=== PATIENT | male | born 1960 | race Caucasian/White ===

== ENCOUNTER 2017-05-21 21:14 | Emergency (ER) | payer MEDICAID ==
[~2017-05-21] VITALS: Wt 74.0 kg
[2017-05-21 23:02] LABS: ADD SCAN DIFF NO; BASOPHIL # 0.1 10^3/ul (0.0-0.1); BASOPHILS % 1.1 % (0.0-2.0); EOSINOPHILS # 0.2 10^3/ul (0.0-0.5); EOSINOPHILS % 2.8 % (0.0-7.0); HEMATOCRIT 41.7 % (42.0-52.0); HEMOGLOBIN 14.1 g/dl (14.0-18.0); LYMPHOCYTES # 2.4 10^3/ul (0.8-2.9); LYMPHOCYTES % 30.3 % (15.0-51.0); MEAN CORPUSCULAR HEMOGLOBIN 30.1 pg (29.0-33.0); MEAN CORPUSCULAR HGB CONC 33.8 g/dl (32.0-37.0); MEAN CORPUSCULAR VOLUME 89.1 fl (82.0-101.0); MEAN PLATELET VOLUME 9.6 fl (7.4-10.4); MONOCYTES % 12.9 % (0.0-11.0); NEUTROPHIL # 4.1 10^3/ul (1.6-7.5); NEUTROPHILS % 51.5 % (39.0-77.0); PLATELET COUNT 356 10^3/UL (140-415); RED BLOOD COUNT 4.68 10^6/ul (4.70-6.10); RED CELL DISTRIBUTION WIDTH 12.6 % (11.5-14.5); WHITE BLOOD COUNT 7.9 10^3/ul (4.8-10.8)
[2017-05-21 23:28] LABS: ADD UMIC YES; UR ASCORBIC ACID NEGATIVE (NEGATIVE); UR BILIRUBIN (Dip) NEGATIVE (NEGATIVE); UR BLOOD (Dip) 2+ mg/dL (NEGATIVE); UR CLARITY CLEAR (CLEAR); UR COLOR AMBER (YELLOW); UR GLUCOSE (Dip) NEGATIVE (NEGATIVE); UR KETONES (Dip) NEGATIVE (NEGATIVE); UR LEUKOCYTE ESTERASE (Dip) NEGATIVE Leu/ul (NEGATIVE); UR NITRITE (Dip) POSITIVE (NEGATIVE); UR RBC 15 /HPF (0-5); UR SPECIFIC GRAVITY (Dip) 1.006 (1.003-1.030); UR TOTAL PROTEIN (Dip) NEGATIVE (NEGATIVE); UR UROBILINOGEN (Dip) 2+ mg/dL (NEGATIVE)
[2017-05-21 23:29] LABS: ALBUMIN 4.7 g/dl (3.3-4.9); ALBUMIN/GLOBULIN RATIO 1.34; BILIRUBIN,INDIRECT 0.3 mg/dl (0-1.1); BILIRUBIN,TOTAL 0.3 mg/dl (0.2-1.3); CALCIUM 9.7 mg/dl (8.4-10.2); CREATININE 1.02 mg/dl (0.61-1.24); POTASSIUM 3.9 mmol/L (3.5-5.1); TOTAL PROTEIN 8.2 g/dl (6.1-8.1)
[2017-05-22] MEDS ORDERED: CEPH-443 PO (00:07)
--- NOTE | 2017-05-22 00:35 | ERD ---
ER Documentation Chief Complaint Date/Time DATE: 05/22/17 TIME: 00:26 Chief Complaint RETENTION X6DAYS WITH CHILLS HPI This is a 56-year-old male presents to the ER stating that on Tuesday he developed a high fever and could not urinate. Patient states that he had fevers through Tuesday however fevers have resolved. Patient states that whenever he urinates he urinates a little bit and that it hurts a lot. Patient tried taking amoxicillin however it did not work he also tried enev-icu-bvxezyn Azo which helped a little bit. Patient denies any abdominal pain he denies any flank pain he denies any rectal pain. Patient does admit to mild nausea however denies vomiting. He has had episodes of nonbloody, watery diarrhea. Patient does not have any nocturia and he does not have history of nocturia. Patient denies any penis pain and denies any dribble of his urine or weak stream. ROS 12 point review of systems was done, all negative except per HPI. Medications Home Meds Active Scripts Cephalexin* (Keflex*) 500 Mg Capsule, 500 MG PO BID for 7 Days, #14 CAP Prov:DELIA RIVERA Michelle 05/22/17 PMhx/Soc Medical and Surgical Hx: pt denies Medical Hx History of Surgery: Yes (SINUES, EYES) Anesthesia Reaction: No Hx Neurological Disorder: No Hx Respiratory Disorders: No Hx Cardiac Disorders: No Hx Miscellaneous Medical Probl: No Hx Alcohol Use: No Hx Substance Use: No Hx Tobacco Use: No Smoking Status: Never smoker Physical Exam Vitals Vital Signs Date Time Temp Pulse Resp B/P Pulse Ox O2 Delivery O2 Flow Rate FiO2 05/21/17 21:18 98.0 78 18 145/86 100 Physical Exam GENERAL: The patient is well developed and appropriate for usual state of health , in no apparent distress. HEENT: Atraumatic. CHEST: Clear to auscultation bilaterally. There are no rales, wheezes or rhonchi. HEART: Regular rate and rhythm. No murmurs, clicks, rubs or gallops. ABDOMEN: Soft, nontender and nondistended. Good bowel sounds. No rebound or guarding. No gross peritonitis. No gross organomegaly or masses. No Long sign or McBurney point tenderness. BACK: No midline or flank tenderness. NEURO: Alert and oriented. SKIN: The skin is warm and dry. Result Diagram: 05/21/17223105/21/172231 Results 24 hrs Laboratory Tests Test 05/21/17 22:32 05/21/17 22:52 White Blood Count 7.910^3/ul Red Blood Count 4.6810^6/ul Hemoglobin 14.1g/dl Hematocrit 41.7% Mean Corpuscular Volume 89.1fl Mean Corpuscular Hemoglobin 30.1pg Mean Corpuscular Hemoglobin Concent 33.8g/dl Red Cell Distribution Width 12.6% Platelet Count 54556^3/UL Mean Platelet Volume 9.6fl Neutrophils % 51.5% Lymphocytes % 30.3% Monocytes % 12.9% Eosinophils % 2.8% Basophils % 1.1% Nucleated Red Blood Cells % 0.0/100WBC Neutrophils # 4.110^3/ul Lymphocytes # 2.410^3/ul Monocytes # 1.010^3/ul Eosinophils # 0.210^3/ul Basophils # 0.110^3/ul Nucleated Red Blood Cells # 0.010^3/ul Sodium Level 143mmol/L Potassium Level 3.9mmol/L Chloride Level 100mmol/L Carbon Dioxide Level 28mmol/L Anion Gap 19 Blood Urea Nitrogen 19mg/dl Creatinine 1.02mg/dl Glucose Level 106mg/dl Calcium Level 9.7mg/dl Total Bilirubin 0.3mg/dl Direct Bilirubin 0.00mg/dl Indirect Bilirubin 0.3mg/dl Aspartate Amino Transf (AST/SGOT) 43IU/L Alanine Aminotransferase (ALT/SGPT) 97IU/L Alkaline Phosphatase 94IU/L Total Protein 8.2g/dl Albumin 4.7g/dl Globulin 3.50g/dl Albumin/Globulin Ratio 1.34 Urine Color AUTUMN Urine Clarity CLEAR Urine pH 6.0 Urine Specific [place] 1.006 Urine Ketones NEGATIVEmg/dL Urine Nitrite POSITIVEmg/dL Urine Bilirubin NEGATIVEmg/dL Urine Urobilinogen 2+mg/dL Urine Leukocyte Esterase NEGATIVELeu/ul Urine Microscopic RBC 15/HPF Urine Microscopic WBC 1/HPF Urine Hemoglobin 2+mg/dL Urine Glucose NEGATIVEmg/dL Urine Total Protein NEGATIVEmg/dl Procedures/MDM This is a 56-year-old male presents to the ER with urinary retention, dysuria. Sims catheter was inserted and over 800 cc of urine was released. Patient did have nitrites on urinalysis, will be treated for urinary tract infection as he does have dysuria. Patient will be sent home with Keflex. I discussed this case with my supervising physician Dr. Ambriz, and he agrees with my medical decision making. Patient will be sent home with Sims catheter inserted as he is having difficulty urinating. He needs to follow-up with his primary care doctor on Tuesday and requests a urology referral. The patient is not able to follow-up with primary care doctor he is to return to ER in 2 days for removal of Sims catheter. At this time suspicion for acute abdomen is low as patient does not have any abdominal pain. Patient does not have any rectal pain I doubt intra-abdominal or rectal abscess causing urinary retention. Patient may have an enlarged prostate, however this is something that he needs to follow-up with a urologist for. Suspicion for bacterial prostatitis is low as patient is nontoxic-appearing he is afebrile he is not complaining of any penile pain and he has denied dribbling flow of urine. In the ER he is comfortable and not complaining of any pain. Patient is to follow-up with his primary care doctor within 1-2 days or return to ER sooner if symptoms worsen. My medical decision making shared with him and agrees with plan. Departure Diagnosis: Primary Impression: UTI (urinary tract infection) Condition: Stable Patient Instructions: Understanding Urinary Tract Infections (UTIs) [facility] Usted se vaca hecho un examen mdico de control que le indica que no est en dutch condicin que requiera tratamiento urgente en el Departamento de Emergencia. Un estudio ms profundo y el tratamiento de narayanan condicin pueden esperar sin ningn riesgo hasta que usted sea atendida/o en el consultorio de narayanan mdico o dutch cl sean. Es responsabilidad suya arreglar dutch daily para el seguimiento del nayla. MANEJO DE CONDICIONES NO URGENTES EN EL FUTURO 1) Si usted tiene un mdico de atencin primaria: Usted debera llamar a narayanan mdico de atencin primaria antes de venir al departamento de emergencia. Despus de las horas de consultorio, narayanan doctor o narayanan asociado/a est disponible por telfono. El mdico o enfermero de marlon en el servicio telefnico puede asesorarle por pedro medio para atender el problema, o nayla contrario se puede programar dutch daily. 2) Si usted no tiene un mdico de atencin primaria: Llame al mdico o clnica de referencia que aparece abajo josé miguel las horas de consultorio para hacer dutch daily para que le vean. CLINICAS: [facility] [phone] [facility] [phone] [facility] [phone] [address] [place] [id number] [phone] [place] [id number] [phone] [facility]. [phone] [address] Additional Instructions: Call your primary care doctor TOMORROW for an appointment during the next 1-2 days.See the doctor sooner or return here if your condition worsens before your appointment time. NECESITA PREGUNTARLE A NARAYANAN DOCTOR PARA DUTCH AUTORIZACION PARA FAITH UN UROLOGO DELIA RIVERA May 22, 2017 00:34
[2017-05-22 00:53] VITALS: BP 129/73; PULSE 63; RESP 18; TEMP 98.1
== END 2017-05-22 00:52 | disposition home or self-care (01) ==
LOC: FTE 21:14
DX: N39.0 Urinary tract infection, site not specified (principal)
CPT/HCPCS: 51701; 80053; 81001; 85025; Z7502

== ENCOUNTER 2017-05-25 09:29 | Emergency (ER) | payer MEDICAID ==
[~2017-05-25] VITALS: Ht 170.2 cm; Wt 73.5 kg
[~2017-05-25 09:29] MED LIST: CEPH-443 PO
[2017-05-25 09:33] VITALS: Ht 170.2 cm; Wt 73.5 kg
--- NOTE | 2017-05-25 10:26 | ERD ---
ER Documentation Chief Complaint Date/Time DATE: 05/25/17 TIME: 10:24 Chief Complaint HERE FOR SCHULTE'S CATH REMOVAL HPI 56-year-old male recently diagnosed with a urinary tract infection with symptoms of difficulty voiding comes emergency room for Schulte catheter removal. He states that initially he was having cloudy and bloody urine and was treated for a urinary tract infection with Keflex that she has been taking. He states that his urine has been clear to normal colored, does not have any bladder pain, abdominal pain. She has not had any fevers or chills and states that he is feeling much better at this time. ROS All systems reviewed and are negative except as per history of present illness. Medications Home Meds Active Scripts Cephalexin* (Keflex*) 500 Mg Capsule, 500 MG PO BID for 7 Days, #14 CAP Prov:DELIA RIVERA Michelle 05/22/17 PMhx/Soc History of Surgery: Yes (SINUES, EYES) Anesthesia Reaction: No Hx Neurological Disorder: No Hx Respiratory Disorders: No Hx Cardiac Disorders: No Hx Miscellaneous Medical Probl: No Hx Alcohol Use: No Hx Substance Use: No Hx Tobacco Use: No Physical Exam Vitals Vital Signs Date Time Temp Pulse Resp B/P Pulse Ox O2 Delivery O2 Flow Rate FiO2 05/25/17 09:33 98.1 83 18 129/76 98 Physical Exam General: Well-developed, well-nourished. The patient appears in no acute distress. HEENT: Head is normocephalic, atraumatic. No scleral icterus. Neck: Supple. Nontender. Lungs: Clear to auscultation. Normal air movement. Heart: Regular rate and rhythm. S1 and S2 are normal. No murmurs, gallops, or rubs. Abdomen: Soft, nontender, nondistended. Bowel sounds are normoactive. Extremities: No clubbing or cyanosis. Normal pulses. Moving extremities x 4. No weakness. Neurologic: Alert and oriented 3. No focal deficits. Skin: Normal turgor. No rash or lesions. Procedures/MDM ED course: Patient's Schulte catheter was removed without any complications. He was unable to void without any difficulty. Medical decision makin-year-old male presents with a history of urinary tract infection 4 days ago, at the time he was having difficulty voiding and therefore Schulte catheter was placed. Today his urine is clear, he was able to void on his own after the Schulte was removed. He states that his fevers have resolved and his pain in the bladder has resolved. He will be advised to follow -up with his primary care doctor. Departure Diagnosis: Primary Impression: Encounter for Schulte catheter removal Condition: DAT Cantor PA-C May 25, 2017 10:25
== END 2017-05-25 11:00 | disposition home or self-care (01) ==
LOC: FTE 09:29
DX: Z46.6 Encounter for fitting and adjustment of urinary device (principal)
CPT/HCPCS: 99283

== ENCOUNTER 2017-06-10 21:43 | Emergency (ER) | payer MEDICAID ==
[~2017-06-10] VITALS: Ht 167.6 cm; Wt 70.5 kg
[2017-06-10 21:47] VITALS: Ht 167.6 cm; Wt 70.5 kg
--- NOTE | 2017-06-11 00:02 | RADRPT ---
PROCEDURE: Ultrasound of the scrotum. CLINICAL INDICATION: Pain. TECHNIQUE: Ultrasound of the scrotum was performed utilizing color Doppler flow imaging COMPARISON: There are no similar studies submitted for comparison. FINDINGS: Right testis: Size (cm): 4.2 x 2.2 x 2.7 Echotexture: Normal Doppler flow: Present Epididymal head: Unremarkable Hydrocele: None Varicocele: Mild rectocele is present. Left testis: Size (cm): 3.9 x 1.7 x 2.7 Echotexture: Normal Doppler flow: Present Epididymal head: A 7 mm cyst/spermatocele is present. Hydrocele: None Varicocele: None IMPRESSION: No evidence of testicular torsion. Mild right varicocele. RPTAT: HIKT .Mario Bustos MD, Date Time Electronically viewed and signed by .Mario Bustos MD, on 06/11/2017 00:01 .T/
[2017-06-11 00:20] LABS: ADD UMIC YES; UR ASCORBIC ACID NEGATIVE (NEGATIVE); UR BACTERIA FEW /HPF (NONE SEEN); UR BILIRUBIN (Dip) NEGATIVE (NEGATIVE); UR BLOOD (Dip) 2+ mg/dL (NEGATIVE); UR CLARITY CLEAR (CLEAR); UR COLOR STRAW (YELLOW); UR GLUCOSE (Dip) NEGATIVE (NEGATIVE); UR KETONES (Dip) NEGATIVE (NEGATIVE); UR LEUKOCYTE ESTERASE (Dip) 1+ Leu/ul (NEGATIVE); UR NITRITE (Dip) NEGATIVE (NEGATIVE); UR RBC 12 /HPF (0-5); UR SPECIFIC GRAVITY (Dip) 1.005 (1.003-1.030); UR TOTAL PROTEIN (Dip) NEGATIVE (NEGATIVE); UR UROBILINOGEN (Dip) NEGATIVE (NEGATIVE)
[2017-06-11] MEDS ORDERED: CIPROFLOXACIN 500 MG TAB PO STA (01:05)
[2017-06-11] MEDS ORDERED: AZITHROMYCIN 250 MG TAB PO STA (01:05)
[2017-06-11] MEDS ORDERED: CEFTRIAXONE 500 MG INJ IM STA (01:05)
[2017-06-11] MEDS ORDERED: CIPR500T4 PO (01:06)
[2017-06-11] MEDS ORDERED: LIDOCAINE 2% (MDV) 20 ML INJ INJ STA (01:07)
--- NOTE | 2017-06-11 02:06 | ERD ---
ER Documentation Chief Complaint Date/Time DATE: 06/11/17 TIME: 02:02 Chief Complaint testicular pain since 10 am today HPI This is a 56-year-old male presenting to the emergency department complaining of burning painful urination, hematuria, and testicular pain since 10am this morning. Patient has been at this facility a couple times in this past couple months for the same complaint. However he states that the testicular pain is new. Patient denies any sexual activity with any new partners. In the past he has tried Keflex with relief. He has not been able to follow-up with anyone. He denies any flank pain or fevers. ROS All systems reviewed and are negative except as per history of present illness. Medications Home Meds Active Scripts Ciprofloxacin Hcl* (Ciprofloxacin Hcl*) 500 Mg Tablet, 500 MG PO BID for 10 Days , TAB Prov:TERRI LAST PA-C 06/11/17 Cephalexin* (Keflex*) 500 Mg Capsule, 500 MG PO BID for 7 Days, #14 CAP Prov:DELIA RIVERA 05/22/17 Allergies Allergies: Coded Allergies: No Known Allergy (Unverified , 06/10/17) PMhx/Soc Medical and Surgical Hx: pt denies Medical Hx, pt denies Surgical Hx History of Surgery: No Anesthesia Reaction: No Hx Neurological Disorder: No Hx Respiratory Disorders: No Hx Cardiac Disorders: No Hx Psychiatric Problems: No Hx Miscellaneous Medical Probl: No Hx Alcohol Use: No Hx Substance Use: No Hx Tobacco Use: No Physical Exam Vitals Vital Signs Date Time Temp Pulse Resp B/P Pulse Ox O2 Delivery O2 Flow Rate FiO2 06/10/17 21:47 98.3 79 20 131/65 97 Physical Exam Const: Well-developed well-nourished no acute distress Head: Atraumatic Eyes: Normal Conjunctiva ENT: Normal External Ears, Nose and Mouth. Neck: Full range of motion..~ No meningismus. Resp: Clear to auscultation bilaterally Cardio: Regular rate and rhythm, no murmurs Abd: Soft, non tender, non distended. Normal bowel sounds Skin: No petechiae or rashes : no penile discharge no testiculare swelling or erythema Back: No midline or flank tenderness Ext: No cyanosis, or edema Neur: Awake and alert Psych: Normal Mood and Affect Results 24 hrs Laboratory Tests Test 06/10/17 22:43 Urine Color STRAW Urine Clarity CLEAR Urine pH 7.0 Urine Specific [place] 1.005 Urine Ketones NEGATIVEmg/dL Urine Nitrite NEGATIVEmg/dL Urine Bilirubin NEGATIVEmg/dL Urine Urobilinogen NEGATIVEmg/dL Urine Leukocyte Esterase 1+Margaret/ul Urine Microscopic RBC 12/HPF Urine Microscopic WBC 18/HPF Urine Bacteria FEW/HPF Urine Hemoglobin 2+mg/dL Urine Glucose NEGATIVEmg/dL Urine Total Protein NEGATIVEmg/dl Current Medications Medications (Trade) Dose Ordered Sig/Ольга Route PRN Reason Start Time Stop Time Status Last Admin Dose Admin Ceftriaxone Sodium (Rocephin) 500 mg ONCE STAT IM 06/11/17 01:05 06/11/17 01:06 DC 06/11/17 01:16 Azithromycin (Zithromax) 1,000 mg ONCE STAT PO 06/11/17 01:05 06/11/17 01:06 DC 06/11/17 01:16 Ciprofloxacin (Cipro) 500 mg ONCE STAT PO 06/11/17 01:05 06/11/17 01:06 DC 06/11/17 01:16 Lidocaine (Xylocaine 2% (Mdv) 20 ml) 20 ml ONCE STAT INJ 06/11/17 01:07 06/11/17 01:08 DC 06/11/17 01:17 Procedures/MDM This is a 56-year-old male presenting to the emergency department complaining of testicular pain and dysuria likely due to a urinary tract infection. There was no evidence of pyelonephritis. Patient appears well, nontoxic appearing. Urinalysis is done in the ED has showed evidence of a urinary tract infection. I reviewed patient's past chart and a couple weeks prior to being seen he was given Keflex for a urinary tract infection. In the ED patient was given Cipro, ceftriaxone and azithromycin for possible STD. Urine culture sent out and gynecomastia culture sent out. An ultrasound was done there is no evidence of testicular torsion or epididymitis. Testicular US: no evidence of testicular torsion. Mild right varicocele. Patient stable to be discharged home with precautions to return the ER for any worsening signs or symptoms. Discussed to follow-up with urology. He understands and agrees with Departure Diagnosis: Primary Impression: UTI (urinary tract infection) Condition: Stable Patient Instructions: Understanding Urinary Tract Infections (UTIs) Additional Instructions: FOLLOW UP WITH YOUR PRIMARY CARE PHYSICIAN TOMORROW. You need referral to see urologist. Return to this facility if you are not improving as expected. Take all medicines as directed. Return to this facility if you are not improving as expected. TERRI LAST PA-C Jun 11, 2017 02:06
== END 2017-06-11 01:33 | disposition home or self-care (01) ==
LOC: FTE 21:43
DX: N39.0 Urinary tract infection, site not specified (principal)
CPT/HCPCS: 76870; 81001; 87086; 87591; 96372; J0696; Z7502; Z7610